=== PATIENT | female | born 1995 | race Caucasian/White ===

== ENCOUNTER 2020-09-05 08:01 | Emergency (ER) | payer SELFPAY ==
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
[2020-09-05 08:15] VITALS: BP 135/42; PULSE 88; RESP 12; TEMP 37.2; O2SAT 98; BMI 23.0
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
[2020-09-05 10:00] VITALS: BP 130/78; PULSE 66; RESP 12; O2SAT 98
== END 2020-09-05 10:00 | disposition home or self-care (01) ==
PROVIDERS: Emergency Provider Emergency Medicine; PCP Internal Medicine
DX: S16.1XXA Strain of muscle, fascia and tendon at neck level, initial encounter (principal); M54.9 Dorsalgia, unspecified; R10.9 Unspecified abdominal pain; V89.2XXA Person injured in unspecified motor-vehicle accident, traffic, initial encounter
CPT/HCPCS: 72125; 99284